=== PATIENT | male | born 1985 | race Caucasian/White ===

== ENCOUNTER 2023-09-06 07:35 | Emergency (ER) | payer SELFPAY ==
[2023-09-06 07:56] VITALS: BP 154/82; PULSE 92; RESP 16; TEMP 36.4; O2SAT 97; BMI 25.1
--- NOTE | 2023-09-06 08:14 | ED_ITS ---
HPI - Animal Bite General Chief Complaint: Wound/Laceration Stated Complaint: bug bite ? Time Seen by Provider: 09/06/23 08:05 Source: patient Mode of arrival: ambulatory Limitations: no limitations History of Present Illness ED Provider: KEVEN Related Data Previous Rx's ?Medication ?Instructions ?Recorded cephalexin 500 mg capsule 500 mg PO QID 7 days #28 caps 09/06/23 doxycycline hyclate 100 mg capsule 100 mg PO BID 10 days #20 caps 09/06/23 hydrocortisone 1 % topical cream 1 appl topical BID PRN itching 09/06/23 (Cortisone (hydrocortisone)) #28.35 grams prednisone 20 mg tablet 40 mg (2 x 20 mg) PO DAILY 5 days 09/06/23 #10 tabs Allergies Allergy/AdvReac Type Severity Reaction Status Date / Time No Known Allergies Allergy Verified 09/06/23 07:58 Physical Exam ED Vital Signs: Vital Signs - 24 hr 09/06/23 07:56 Temperature 97.6 F Pulse Rate 92 Respiratory Rate 16 Blood Pressure 154/82 H Pulse Oximetry 97 Oxygen Delivery Method Room Air BMI result Body Mass Index 25.1 Discharge Plan Discharge Clinical Impression: Cellulitis, Dermatitis Patient Disposition: Home, Self-Care Instructions: Cellulitis (ED), Dermatitis (ED) Additional Instructions: return for worsening swelling, pain, fevers, the elbow joint swells completely around and you cannot move the arm finish all antibiotics keep area clean and dry Prescriptions: New prednisone 20 mg tablet 40 mg PO DAILY 5 Days Qty: 10 0RF cephalexin 500 mg capsule 500 mg PO QID 7 Days Qty: 28 0RF doxycycline hyclate 100 mg capsule 100 mg PO BID 10 Days Qty: 20 0RF hydrocortisone [Cortisone (hydrocortisone)] 1 % cream 1 appl topical BID PRN (Reason: itching) Qty: 28.35 0RF Print Language: Sinhala
--- NOTE | 2023-09-06 08:31 | ED.SKABFB ---
HPI - Skin/Abscess/Foreign Bdy General Chief complaint: Wound/Laceration Stated complaint: bug bite ? 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 no known fevers MD complaint: rash and lesion Onset (ago): day(s) (5) Tetanus up to date: yes Location: LUE Severity: moderate Quality: burning and pruritic Pain Consistency: constant Relieving factors: none Exacerbating factors: palpation Context: none Associated symptoms: denies other symptoms Treatments prior to arrival: none Related Data Previous Rx's ?Medication ?Instructions ?Recorded cephalexin 500 mg capsule 500 mg PO QID 7 days #28 caps 09/06/23 doxycycline hyclate 100 mg capsule 100 mg PO BID 10 days #20 caps 09/06/23 hydrocortisone 1 % topical cream 1 appl topical BID PRN itching 09/06/23 (Cortisone (hydrocortisone)) #28.35 grams prednisone 20 mg tablet 40 mg (2 x 20 mg) PO DAILY 5 days 09/06/23 #10 tabs Allergies Allergy/AdvReac Type Severity Reaction Status Date / Time No Known Allergies Allergy Verified 09/06/23 07:58 Review of Systems Review of Systems: Constitutional : No Fever, No Chills ENT/Mouth : No sore throat, No Rhinorrhea Eyes: No Eye Pain, No Swelling, No Redness Cardiovascular : No Chest Pain, No SOB Respiratory : No Cough, No Sputum Gastrointestinal : No Nausea, No Vomiting, No Diarrhea, No abdominal Pain Genitourinary : No Dysuria, No Hematuria Musculoskeletal : No joint pain, No Myalgias, No Joint Swelling Skin : No Skin Lesions, positive skin rash Neuro : No Weakness, No Numbness, No Headache Psych : No Anxiety, No Depression Heme/Lymph: No Bruising, No Bleeding,No Lymphadenopathy Endocrine : No Polyuria, No Polydipsia All other systems reviewed and are negative PMFSH Social History Social History Advance Directives: No Advance Directives Information Provided: No Physical Exam Vital Signs: Vital Signs: Last Vital Signs Temp 97.6 F 09/06/23 07:56 Pulse 92 09/06/23 07:56 Resp 16 09/06/23 07:56 BP 154/82 H 09/06/23 07:56 Pulse Ox 97 09/06/23 07:56 O2 Del Method Room Air 09/06/23 07:56 BMI result Body Mass Index 25.1 Appearance: Alert. Oriented X3. No acute distress. Eyes: Pupils equal, round and reactive to light. ENT: Pharynx normal. Neck: Normal inspection. Neck supple. CVS: Normal heart rate and rhythm. Pulses normal. Respiratory: No respiratory distress. Breath sounds normal. Abdomen: Soft and nontender. Skin: Skin warm and dry. Normal skin color. L forearm proximal posterior raised red vesicular type cluster of bumps then surrounding but faint red hot ring no fluctutance distal NV intact Extremities: No lower extremity edema. No calf ttp normal ROM of L elbow joint no effusion Neuro: Oriented X 3. No motor deficit. No sensory deficit. Medical Decision Making Medical Decision Making MDM Narrative: 38 yo male with no sig PMH here with c/o L elbow rash that is itching and appears to have been a localized raised dermatitis that then has mild infection surrounding it it does not appear totally like erythema migrans. At this time will start on prednisone, cephalexin/doxy just in case of tick borne return precautions. There are no signs of septic joint. Differential Diagnosis Differential Diagnoses: The differential diagnosis associated with the presentation includes tick bite, cellulitis, dermatitis Prescription Management I considered prescription management with: Antibiotic and Other Discharge Plan Discharge Clinical Impression: Dermatitis Cellulitis Qualifiers: Site of cellulitis: extremity Site of cellulitis of extremity: upper extremity Laterality: left Qualified Code(s): L03.114 - Cellulitis of left upper limb Patient Disposition: Home, Self-Care Instructions: Cellulitis (ED), Dermatitis (ED) Additional Instructions: return for worsening swelling, pain, fevers, the elbow joint swells completely around and you cannot move the arm finish all antibiotics keep area clean and dry Prescriptions: New prednisone 20 mg tablet 40 mg PO DAILY 5 Days Qty: 10 0RF cephalexin 500 mg capsule 500 mg PO QID 7 Days Qty: 28 0RF doxycycline hyclate 100 mg capsule 100 mg PO BID 10 Days Qty: 20 0RF hydrocortisone [Cortisone (hydrocortisone)] 1 % cream 1 appl topical BID PRN (Reason: itching) Qty: 28.35 0RF Print Language: Austrian
[2023-09-06 08:43] VITALS: BP 136/82; PULSE 70; RESP 18; TEMP 36.9; O2SAT 100
== END 2023-09-06 08:44 | disposition home or self-care (01) ==
PROVIDERS: Emergency Provider Emergency Medicine
DX: L03.114 Cellulitis of left upper limb (principal); R21 Rash and other nonspecific skin eruption; L29.9 Pruritus, unspecified
CPT/HCPCS: 99282; 99283